=== PATIENT | male | born 1990 | race Caucasian/White ===

== ENCOUNTER 2022-10-24 14:21 | Inpatient (IN) | payer OTHER ==
[~2022-10-24] VITALS: Ht 185.4 cm; Wt 78.0 kg
[2022-10-24 15:24] LABS: TRICYCLIC ANTIDEPRESS URINE NEGATIVE
[2022-10-24 15:32] LABS: BASO # 0.1 K/mm3 (0.0-0.2); BASO % 0.5 % (0.0-2.0); EOS % 0.2 % (0.0-4.0); GRAN # 8.6 K/mm3 (1.4-6.5); GRAN % 85.3 % (42.2-75.2); HEMATOCRIT 45.8 % (42.0-52.0); HEMOGLOBIN 15.7 g/dl (13.5-18.0); LYMPH # 0.7 K/mm3 (1.2-3.4); LYMPH % 7.3 % (20.0-51.0); MEAN CELL VOLUME 92 fl (80.0-100.0); MEAN CORPUSCULAR HEMOGLOBIN 32 pg (27-31); MEAN CORPUSCULAR HGB CONC 34 g/dl (33.0-37.0); MEAN PLATELET VOLUME 8.8 fl (7.4-10.4); MONO # 0.6 K/mm3 (0.1-0.6); MONO % 6.2 % (1.7-9.3); PLATELET COUNT 218 K/mm3 (130-400); RED BLOOD COUNT 4.97 M/mm3 (4.20-5.60)
[2022-10-24 15:51] LABS: ALANINE AMINOTRANSFERASE 51 U/L (0-55); ALBUMIN 4.6 gm/dL (3.5-5.0); ALKALINE PHOSPHATASE 60 U/L (40-150); ANION GAP 19 mmol/L (7-16); AST,SGOT 34 U/L (5-34); BLOOD UREA NITROGEN 10 mg/dL (9-21); CALCIUM 10.5 mg/dL (8.4-10.2); CARBON DIOXIDE 20 mmol/L (22-29); CHLORIDE 101 mmol/L (98-107); GLUCOSE 112 mg/dL (70-99); POTASSIUM 3.9 mmol/L (3.5-4.5); SODIUM 140 mmol/L (136-145); TOTAL PROTEIN 7.9 gm/dL (6.2-8.1)
[2022-10-24 15:53] LABS: ACETAMINOPHEN < 1.0 ug/mL (10-30); ALCOHOL(ethanol),MEDICAL < 10 mg/dL (0-10); SALICYLATE < 5.0 mg/dL (15.0-30.0)
[2022-10-24 17:45] VITALS: BP 144/93; PULSE 83; TEMP 98.5
--- NOTE | 2022-10-24 17:45 | NUR ---
Arrived to the unit from ED. Patient alert and oriented upon arrival. Patient is plesant and cooperative with staff, however he appears tearfull and anxious with a flat affect. Patient states his goal is to detox at this time. Explained the protocol for detox with ativan and patient states he understands and is agreeable with this plan. Bed alarm activated and call light left within reach.
[2022-10-24 17:48] VITALS: O2SAT 100
[2022-10-24] MEDS ORDERED: ATARAX 25MG25 MG/TAB PO (18:07)
[2022-10-24] MEDS ORDERED: PROZAC 20MG20 MG PO (18:09)
[2022-10-24] MEDS ORDERED: TOPAMAX 25MG25 M1 PO (18:10)
[2022-10-24 20:00] VITALS: BP 138/92; PULSE 92; TEMP 98.5
[2022-10-25] VITALS (11 sets, daily range): BP systolic 108–141; BP diastolic 71–90; PULSE 66–82; TEMP 98.1–98.7; O2SAT 97–100
--- NOTE | 2022-10-25 06:30 | NUR ---
Report received from YARI Cramer; patient currently resting in bed with fluids running through his peripheral line. No other lines or tubes are in place at this time. Patient is on room air and all vital signs are within normal limits this morning.
[2022-10-25 07:01] LABS: CALCIUM 9.5 mg/dL (8.4-10.2); CREATININE, serum 0.88 mg/dL (0.72-1.25); MAGNESIUM 1.8 mg/dL (1.6-2.6); POTASSIUM 3.7 mmol/L (3.5-4.5)
--- NOTE | 2022-10-25 15:16 | NUR ---
printed circuit board reworker met with patient today to discuss discharge planning and alcohol treatment options. Patient plans to return home where he is independent with his activities of daily living. Patient states that he has [employer] insurance through his employment. Patient does not have a primary care provider and worker provided list. Patient states he doesn't have advance directives and states he is not and does not have children. Patient states that his mother is his next of kin. Worker also provided advance directives and offered assistance with completion. Worker provided patient with information on [facility] and arranged for their telephone claims representative to call patient, per his request. Worker is obtaining alcohol treatment options at the [place], and will provide patient, per his request. Patient states that he prefers outpatient treatment. Worker is providing inpatient and outpatient options.
--- NOTE | 2022-10-25 18:30 | NUR ---
Patient was calm and slept on and off throughout the day; only one CIWA score was high enough to give a dose of Ativan, and that was due largely to anxiety. Patient was given info today on treatment options for alcohol rehab and genuinely seemed interested in being admitted inpatient at a facility and getting treatment.
--- NOTE | 2022-10-25 19:00 | NUR ---
Reported off to YARI Kohler; patient taken upstairs by YARI Cramer after giving report upstairs. Patient transferred to medical room 352 in stable condition; all vital signs were within normal limits. Patient's belongings were sent up with patient.
--- NOTE | 2022-10-25 22:17 | NUR ---
PATIENT WAS RECEIVED A S STEPHANIE IN FROM ICU ON A WHEELCHAIR ESCORTED BY THE HAND FILER BALANCE WHEEL.PATIENT IS ON RA.PATIENT DENIES PAIN.PATIENT REQUESTED TO HAVE A SHOWER AND SAME DONE.PATIENT IS A SBA.PATIENT TAKES PILLS WHOLE WITH NO TROUBLE.ADMISSION ORIENTATION DONE.SAFETY MEASURES IN PLACE.NO OTHER NEEDS AT THIS TIME.
[2022-10-26 02:01] VITALS: BP 128/60; PULSE 84
[2022-10-26 04:00] VITALS: BP 116/74; PULSE 77; TEMP 98.3
--- NOTE | 2022-10-26 06:11 | NUR ---
PATIENT SLEPT THROUGH THE NIGHT.CIWA SCORE REMAINS BELOW 2.NO OTHER NEEDS ATTHIS TIME.
[2022-10-26 06:18] VITALS: BP 117/68; PULSE 87; TEMP 98.2
[2022-10-26 07:34] VITALS: BP 127/72; PULSE 68; TEMP 98.5
[2022-10-26] MEDS ORDERED: THIAMINE 1100 MG/TAB PO (09:26)
[2022-10-26] MEDS ORDERED: FOLIC ACID 11 MG/TA1 PO (09:26)
[2022-10-26] MEDS ORDERED: DUO-KAPS1 CAP PO (09:27)
--- NOTE | 2022-10-26 11:23 | NUR ---
DISCHARGE INSTRUCTIONS REVIEWED WITH PT, ALL QUESTIONS AND CONCERNS ANSWERED. PT GIVEN LIST OF PHYSICIANS TO SET UP PRIMARY CARE IN [place].PT STATED HE COULD NOT FIND HIS SHOES. STATED HE REMEMBERS TAKING THEM OFF IN THE ER WHEN HE CHANGED INTO SCRUBS. HE ALSO COULD NOT FIND HIS KEYS. HE STATED HE IS UNSURE IF HIS FRIEND TOOK HIS SHOES AND KEYS HOME OR NOT. THIS NURSE CALLED ICU AND ER TO CHECK AND NEITHER DEPARTMENT HAD HIS TENNIS SHOES. PT WAS ABLE TO GET AHOLD OF A FRIEND TO PICK HIM UP AND THEY ARE BRINGING HIM SHOES. PT WAS ESCORTED OUT BY [facility] AT 1130. ALL BELONGINGS IN THE ROOM TAKEN WITH PT. IV SITE WAS DISCONTINUED PRIOR TO PT TAKING A SHOWER THIS MORNING, CATHETER INTACT.
--- NOTE | 2022-10-26 15:11 | NUR ---
Worker met with patient and provided patient a list of [facility] primary care offices. Worker contacted [facility] and confirmed that [facility] has an opening and arranged for Daksha to contant patient for an intake. Patient has an appointment with [facility] tomorrow and will request a Community Care Referral for authorization of the cost of alcohol treatment facility or outpatient. Patient will also inquire if he can pursue a [place] provider or if he needs to secure primary care through the [place]. Worker spoke with Georgiana at the [facility] clinic and Cydney at the [facility] and they endorced the above information. Patient verbalizes understanding of the above information and agrees with discharge to home. Patient states he continues to be open to outpatient or inpatient treatment and understands that the [facility] must be secured as first payment. Patient secured a ride home today.
== END 2022-10-26 11:30 | disposition home or self-care (01) | DRG 897 ==
LOC: COL.ER 14:21 → ICU 17:20 → MEDICAL 10-25 20:40
PROVIDERS: Emergency Medicine; ADMIT Internal Medicine
DX: F10.10 Alcohol abuse, uncomplicated (principal); F41.9 Anxiety disorder, unspecified; F32.A Depression, unspecified; Z87.891 Personal history of nicotine dependence
CPT/HCPCS: J2060